=== PATIENT | female | born 1955 | race Caucasian/White ===

== ENCOUNTER → 2017-03-17 | Outpatient (CLI) | payer OTHER ==
[~2017-03-17] MED LIST: ASPIRIN E.C. 8181 MG PO; ATIVAN 0.50.5 MG/TAB PO; CALCIUM600 M2 PO; COENZYME Q-101 POW; FLONASE NASAL S16 GM NS; LEXAPRO 10MG10 MG PO; MULTIPLE VITAMI1 TA4 PO; MVI; PREDNISONE20 MG PO; SYNTHROID0.075 MG/T PO; VITAMIN D1000 IU PO; ZOCOR 40MG40 MG PO
== END ==
LOC: MC.RAD 03-13 13:40
DX: Z12.31 Encounter for screening mammogram for malignant neoplasm of breast (principal)

== ENCOUNTER 2018-03-08 08:10 | Outpatient (RCR) | payer OTHER | END 2018-03-09 09:51 | disposition home or self-care (01) | LOC: WSOH 08:10 | DX: S80.02XA Contusion of left knee, initial encounter (principal); W01.0XXA Fall on same level from slipping, tripping and stumbling without subsequent striking against object, initial encounter; Y93.01 Activity, walking, marching and hiking; Y99.0 Civilian activity done for income or pay; Z87.891 Personal history of nicotine dependence; Z79.899 Other long term (current) drug therapy ==

== ENCOUNTER → 2018-12-13 | Outpatient (CLI) | payer BC, OTHER ==
[~2018-12-13] MED LIST changes: +NORCO 325 MG-51 TAB PO; +PROTONIX 40MG T40 MG PO
== END ==
LOC: MC.RAD 07:45
DX: Z12.31 Encounter for screening mammogram for malignant neoplasm of breast (principal)

== ENCOUNTER 2019-11-12 10:10 | Emergency (ER) | payer OTHER ==
[~2019-11-12] VITALS: Ht 162.6 cm; Wt 75.0 kg
[2019-11-12 10:14] VITALS: BP 112/66; TEMP 97
[2019-11-12 11:08] LABS: STREP SCREEN NEGATIVE
[2019-11-12] MEDS ORDERED: AMOXICILLIN 8751 TAB PO (11:42)
[2019-11-12 11:50] VITALS: PULSE 76
== END 2019-11-12 11:50 | disposition home or self-care (01) ==
LOC: COL.ER 10:10
PROVIDERS: Nurse Practitioner
DX: J01.90 Acute sinusitis, unspecified (principal); F41.9 Anxiety disorder, unspecified; Z90.710 Acquired absence of both cervix and uterus; Z88.8 Allergy status to other drugs, medicaments and biological substances; Z79.51 Long term (current) use of inhaled steroids

== ENCOUNTER → 2020-09-25 | Emergency (ER) | payer OTHER ==
[~2020-09-25] VITALS: Ht 162.6 cm; Wt 76.4 kg
[~2020-09-25] MED LIST changes: +AMOXICILLIN 8751 TAB PO; +MEDROL 4MG DOSPA4 MG PO; +PROVENTIL0.09 MG/A1 IH
[2020-09-25 10:02] VITALS: TEMP 97
[2020-09-25 11:18] VITALS: BP 150/77; PULSE 77
== END ==
LOC: COL.ER 09:49
DX: U07.1 COVID-19 (principal); E03.9 Hypothyroidism, unspecified; E78.5 Hyperlipidemia, unspecified; K21.9 Gastro-esophageal reflux disease without esophagitis; Z90.710 Acquired absence of both cervix and uterus; Z87.891 Personal history of nicotine dependence; Z88.1 Allergy status to other antibiotic agents; Z88.8 Allergy status to other drugs, medicaments and biological substances; Z79.890 Hormone replacement therapy

== ENCOUNTER 2020-09-26 22:41 | Emergency (ER) | payer OTHER ==
[~2020-09-26] VITALS: Ht 162.6 cm; Wt 76.4 kg
[~2020-09-26 22:41] MED LIST changes: -MEDROL 4MG DOSPA4 MG PO; -PROVENTIL0.09 MG/A1 IH
[2020-09-26 22:47] VITALS: TEMP 99.5
[2020-09-26] MEDS ORDERED: MEDROL 4MG DOSPA4 MG PO (23:08)
[2020-09-26] MEDS ORDERED: PROVENTIL0.09 MG/A1 IH (23:08)
[2020-09-26 23:28] VITALS: BP 135/86; PULSE 97
== END 2020-09-26 23:37 | disposition home or self-care (01) ==
LOC: COL.ER 22:41
DX: U07.1 COVID-19 (principal)
CPT/HCPCS: J1100

== ENCOUNTER → 2021-04-30 | Outpatient (CLI) | payer MEDICARE, OTHER ==
[~2021-04-30] MED LIST changes: +MEDROL 4MG DOSPA4 MG PO; +PINWORM144 MG/ML PO; +PROVENTIL0.09 MG/A1 IH
== END ==
LOC: MC.RAD 09:45
DX: Z12.31 Encounter for screening mammogram for malignant neoplasm of breast (principal)

== ENCOUNTER 2021-06-08 21:24 | Emergency (ER) | payer MEDICARE, OTHER ==
[~2021-06-08] VITALS: Ht 162.6 cm; Wt 64.5 kg
[~2021-06-08 21:24] MED LIST changes: -PINWORM144 MG/ML PO
[2021-06-08 21:35] VITALS: TEMP 97.9
[2021-06-08] MEDS ORDERED: PINWORM144 MG/ML PO (21:55)
[2021-06-08 22:08] VITALS: PULSE 71
== END 2021-06-08 22:08 | disposition home or self-care (01) ==
LOC: COL.ER 21:24
DX: B80 Enterobiasis (principal)

== ENCOUNTER → 2022-10-14 | Outpatient (CLI) | payer MEDICARE, OTHER ==
[~2022-10-14] MED LIST changes: +BACTRIM DS 8001 TAB PO; +PINWORM144 MG/ML PO
== END ==
LOC: MC.RAD 09:55
DX: Z12.31 Encounter for screening mammogram for malignant neoplasm of breast (principal)

== ENCOUNTER 2022-10-18 16:35 | Emergency (ER) | payer MEDICARE, OTHER ==
[~2022-10-18] VITALS: Ht 162.6 cm; Wt 65.9 kg
[2022-10-18 17:06] VITALS: TEMP 98.4
[2022-10-18 17:38] LABS: COLLECTION METHOD CLEAN CATCH
[2022-10-18 17:44] LABS: BASO % 0.7 % (0.0-2.0); EOS # 0.1 K/mm3 (0.0-0.7); EOS % 1.1 % (0.0-4.0); GRAN # 3.7 K/mm3 (1.4-6.5); GRAN % 67.9 % (42.2-75.2); HEMATOCRIT 39.2 % (37.0-47.0); HEMOGLOBIN 13.1 g/dl (12.5-16.0); LYMPH # 0.9 K/mm3 (1.2-3.4); LYMPH % 15.8 % (20.0-51.0); MEAN CELL VOLUME 90 fl (80.0-100.0); MEAN CORPUSCULAR HEMOGLOBIN 30 pg (27-31); MEAN CORPUSCULAR HGB CONC 33 g/dl (33.0-37.0); MEAN PLATELET VOLUME 10.8 fl (7.4-10.4); MONO # 0.8 K/mm3 (0.1-0.6); MONO % 14.3 % (1.7-9.3); PLATELET COUNT 166 K/mm3 (130-400); RED BLOOD COUNT 4.36 M/mm3 (4.10-5.30); REDCELL DISTRIBUTION WIDTH-CV 12.5 % (11.5-14.5)
[2022-10-18 17:47] LABS: PH 5.5 (5.0-8.5); URINE APPEARANCE Clear (CLEAR/HAZY); URINE BLOOD 2+ (NEGATIVE); URINE COLOR Yellow (YELLOW); URINE GLUCOSE Negative (NEGATIVE); URINE KETONE Negative (NEGATIVE); URINE NITRATE Negative (NEGATIVE); URINE PROTEIN(semi-quant) 1+ (NEGATIVE); URINE UROBILINOGEN 0.2 E.U/dL (0.2-1.0)
[2022-10-18 17:49] LABS: MUCOUS Present (NOT PRESENT); SQUAMOUS EPITHELIAL 0-2 /hpf (0-10); URINE BACTERIA None Seen /hpf (NONE SEEN)
[2022-10-18 18:02] LABS: ALBUMIN 3.9 gm/dL (3.4-4.8); BILIRUBIN,TOTAL 0.2 mg/dL (0.2-1.2); C-REACTIVE PROTEIN 1.65 mg/dL (0.00-0.50); CALCIUM 9.8 mg/dL (8.4-10.2); CREATININE, serum 0.91 mg/dL (0.57-1.11); TOTAL PROTEIN 7.6 gm/dL (6.2-8.1)
[2022-10-18] MEDS ORDERED: NORCO 325 MG-51 TAB PO (18:36)
[2022-10-18 19:00] VITALS: BP 141/83; PULSE 80
== END 2022-10-18 19:00 | disposition home or self-care (01) ==
LOC: COL.ER 16:35
PROVIDERS: Nurse Practitioner
DX: R10.9 Unspecified abdominal pain (principal); Z87.891 Personal history of nicotine dependence
CPT/HCPCS: J2405; J7030